=== PATIENT | male | born 1945 ===

== ENCOUNTER 2022-08-25 20:55 | Observation (INO) | payer OTHER ==
[~2022-08-25] VITALS: Ht 185.4 cm; Wt 60.8 kg
[~2022-08-25 20:55] MED LIST: PROAIR HFA IN
[2022-08-25 21:59] LABS: PLATELET COUNT 266 K/uL (142-355)
[2022-08-25 22:15] LABS: POTASSIUM 3.5 mmol/L (3.6-5.2)
[2022-08-26 03:54] VITALS: BP 122/73; TEMP 97.8
[2022-08-26 04:00] VITALS: BP 122/73; TEMP 97.8
[2022-08-26 05:08] VITALS: BP 120/52; TEMP 97.9; Ht 185.4 cm; Wt 60.8 kg
[2022-08-26 05:29] LABS: PLATELET COUNT 284 K/uL (142-355)
[2022-08-26 06:10] LABS: POTASSIUM 3.5 mmol/L (3.6-5.2)
[2022-08-26 08:00] VITALS: BP 103/65; TEMP 97.5
[2022-08-26] MEDS ORDERED: AMLODIPINE BESYLATE PO ×2 (09:20→11:05)
[2022-08-26] MEDS ORDERED: MEGE40TA32 PO (09:21)
[2022-08-26] MEDS ORDERED: TEMA15CA19 PO (09:21)
[2022-08-26] MEDS ORDERED: PRED20TA27 PO (11:05)
[2022-08-26] MEDS ORDERED: CEFD300C2 PO (11:05)
[2022-08-26] MEDS ORDERED: ALBU90AE13 INH (11:06)
== END 2022-08-26 13:30 | disposition home or self-care (01) ==
LOC: ED 20:55 → MED/SURG 08-26 00:07
PROVIDERS: Emergency Medicine; ADMIT Internal Medicine; ATTEND Internal Medicine
DX: J44.1 Chronic obstructive pulmonary disease with (acute) exacerbation (principal); I10 Essential (primary) hypertension; R91.8 Other nonspecific abnormal finding of lung field; Z79.899 Other long term (current) drug therapy
CPT/HCPCS: 36415; 80048; 80053; 80307; 81002; 83880; 84484; 85027; 87502; 87635; 93005; 94664; 94760; 96365; 96374; 99221; 99284; G0378; J0696; J2920; J2930; Q9963; U0003